=== PATIENT | female | born 1985 | race Caucasian/White ===

== ENCOUNTER 2019-01-02 21:46 | Emergency (ER) | payer BC ==
[~2019-01-02] VITALS: Ht 154.9 cm; Wt 69.6 kg
[2019-01-02 21:57] VITALS: Ht 154.9 cm; Wt 69.6 kg
[2019-01-03 01:30] VITALS: BP 120/70
== END 2019-01-03 01:30 | disposition home or self-care (01) ==
LOC: ED 21:46
DX: N76.0 Acute vaginitis (principal)
CPT/HCPCS: 87491; 87591